=== PATIENT | male | born 1980 | race Caucasian/White ===

== ENCOUNTER 2017-02-21 19:04 | Emergency (ER) | payer BC ==
[2017-02-21 19:15] VITALS: BP 120/65
[2017-02-21] MEDS ORDERED: predniSONE 20 MG Tab PO ONE (19:47)
--- NOTE | 2017-02-21 19:51 | EDM.PDOC ---
ED HPI GENERAL MEDICAL PROBLEM - General Chief Complaint: General Stated Complaint: L elbow pain Time Seen by Provider: 02/21/17 19:30 Source of Information: Reports: Patient History Limitations: Reports: No Limitations - History of Present Illness INITIAL COMMENTS - FREE TEXT/NARRATIVE: Patient came in for evaluation of left elbow pain. Pain has been present for several months. Today it became worse. He was carrying a 2x4 when he felt a 'pop ' in lateral left elbow (site of the pain) and the pain appeared to worsen. Hurts more when he makes fist. Pain sometimes radiates down left forearm muscles. He thinks that his finger may feel a bit numb at times but otherwise does not complain of numbness. No weakness. Able to flex/extend wrist but this causes discomfort in elbow. No initial trauma noted several months ago when pain started. Job involves lifting/manual labor. History of back pain/disc issues as well as degenerative knee problems. Left Elbow Pain Score (Numeric/FACES): 6 - Related Data Allergies Allergy/AdvReac Type Severity Reaction Status Date / Time penicillin Allergy Hives Verified 10/31/16 18:24 venom-honey bee Allergy Anaphylactic Verified 10/31/16 18:24 [bee venom (honey bee)] Shock Home Meds: Home Meds Ibuprofen [Motrin] 400 mg PO BID 02/21/17 [History] Prednisone [IJD: predniSONE] 20 mg PO WITHBREAKFAST #3 tab 02/21/17 [Rx] Past Medical History HEENT History: Reports: Sinusitis Cardiovascular History: Reports: None Respiratory History: Reports: Asthma Genitourinary History: Reports: None Musculoskeletal History: Reports: Arthritis, Back Pain, Chronic, Fracture Neurological History: Reports: Concussion, Migraines Psychiatric History: Reports: ADD, Anxiety Endocrine/Metabolic History: Reports: None Dermatologic History: Reports: Eczema - Infectious Disease History Infectious Disease History: Reports: Chicken Pox, Measles, Mumps - Past Surgical History HEENT Surgical History: Reports: None Cardiovascular Surgical History: Reports: None Respiratory Surgical History: Reports: None GI Surgical History: Reports: Hernia, Inguinal Male Surgical History: Reports: Cystectomy Endocrine Surgical History: Reports: None Neurological Surgical History: Reports: None Musculoskeletal Surgical History: Reports: None Dermatological Surgical History: Reports: None Social & Family History - Tobacco Use Smoking Status *Q: Current Every Day Smoker Years of Tobacco use: 16 Packs/Tins Daily: 0.8 Used Tobacco, but Quit: Yes Month Tobacco Last Used: 08 Second Hand Smoke Exposure: Yes - Caffeine Use Caffeine Use: Reports: Coffee, Energy Drinks, Soda - Recreational Drug Use Recreational Drug Use: No ED ROS GENERAL - Review of Systems Review Of Systems: ROS reveals no pertinent complaints other than HPI. ED EXAM, GENERAL - Physical Exam Exam: See Below Exam Limited By: No Limitations General Appearance: Alert, WD/WN, No Apparent Distress Eye Exam: Bilateral Eye: EOMI, PERRL Nose: No: Nasal Swelling, Nasal Drainage Throat/Mouth: Normal Voice, No Airway Compromise Head: Atraumatic, Normocephalic Neck: Supple Respiratory/Chest: No Respiratory Distress Extremities: Other (Tender over lateral epicondyle, very mild edema noted over this area. Able to flex and extend elbow/wrist/fingers. No erythema. No increased warmth. Skin intact. No other swelling noted. Arm non-tender otherwise. Good clerical aide strength bilaterally. ) Neurological: Alert, Oriented, Normal Cognition, Normal Gait Psychiatric: Normal Affect, Normal Mood Skin Exam: Warm, Dry, Intact, Normal Color Course - Vital Signs Last Recorded V/S: Last Vital Signs Temp 36.7 C 02/21/17 19:10 Pulse 91 02/21/17 19:10 Resp 14 02/21/17 19:10 BP 120/65 02/21/17 19:10 Pulse Ox 99 02/21/17 19:10 - Orders/Labs/Meds Orders: Active Orders 24 hr Category Date Time Status Elbow Min 3V Lt [CR] Stat Exams 02/21/17 19:11 Taken Meds: Medications Discontinued Medications Generic Name Dose Route Start Last Admin Trade Name Elijah PRN Reason Stop Dose Admin Prednisone 40 mg 02/21/17 19:47 02/21/17 19:50 Prednisone PO 02/21/17 19:48 40 mg NOW ONE Administration - Re-Assessments/Exams Free Text/Narrative Re-Assessment/Exam: Suspect lateral epicondylitis with acute exacerbation. Discussed with patient usual history and treatment of patients with this diagnosis. Recommend rest over weekend. Short course prednisone given to see if this helps with acute inflammation. He is to follow up with his primary provider Friday or Friday for recheck. He may benefit from referral to PT. May need referral to Ortho. Patient is in agreement with plan. Departure - Departure Time of Disposition: 19:45 Disposition: Home, Self-Care 01 Condition: Good Clinical Impression: Epicondylitis, lateral (tennis elbow) Qualifiers: Laterality: left Qualified Code(s): M77.12 - Lateral epicondylitis, left elbow - Discharge Information Prescriptions: Prednisone [IJD: predniSONE] 20 mg PO WITHBREAKFAST #3 tab Instructions: Prednisone tablets, Tennis Elbow, [id number] Referrals: Edgard Cooper PA-C [Primary Care Provider] - Forms: ED Department Discharge Additional Instructions: Follow up with your primary provider next Friday or Friday. Work restrictions can be discussed if needed, referral to Ortho can also be discussed if indicated. Tylenol and/or Ice may be helpful. Avoid Motrin/Aleve while taking the Prednisone. Rest the left arm and avoid lifting/carrying with it. - My Orders Last 24 Hours: My Active Orders 02/21/17 19:11 Elbow Min 3V Lt [CR] Stat - Assessment/Plan Last 24 Hours: My Active Orders 02/21/17 19:11 Elbow Min 3V Lt [CR] Stat
== END 2017-02-21 20:00 | disposition home or self-care (01) ==
LOC: LL.ED 19:04
DX: M77.12 Lateral epicondylitis, left elbow (principal); F17.210 Nicotine dependence, cigarettes, uncomplicated; M19.90 Unspecified osteoarthritis, unspecified site; J45.909 Unspecified asthma, uncomplicated; F98.8 Other specified behavioral and emotional disorders with onset usually occurring in childhood and adolescence; Z88.0 Allergy status to penicillin; Z91.030 Bee allergy status; Z79.891 Long term (current) use of opiate analgesic; Z79.899 Other long term (current) drug therapy
CPT/HCPCS: 73080; 99283; A9270

== ENCOUNTER 2019-04-24 21:58 | Emergency (ER) | payer BC ==
[2019-04-24 22:02] VITALS: BP 115/71; PULSE 89
[2019-04-24] MEDS ORDERED: Tetracaine HCl/PF 0.5% 4 ML Bottle EYERT ONE (22:23)
[2019-04-24] MEDS ORDERED: Balanced Salt Solution Ophth Irrig 30 ML Bottle EYERT ONE (22:30)
--- NOTE | 2019-04-24 22:43 | EDM.PDOC ---
ED HPI GENERAL MEDICAL PROBLEM - General Chief Complaint: Eye Problems Stated Complaint: Right Eye burning Time Seen by Provider: 04/24/19 22:00 Source of Information: Reports: Patient, Family History Limitations: Reports: No Limitations - History of Present Illness INITIAL COMMENTS - FREE TEXT/NARRATIVE: Patient is a 38-year-old who states that he was working on a car when something fell in his eyes at that time he washed it but is still irritating him at this time I examined the eye saw no foreign body we irrigated the eye and apply Neosporin and a Nitropatch he is to return if not better Friday Onset: Gradual Duration: Day(s):, Constant Location: Reports: Face Quality: Reports: Ache, Throbbing Severity: Moderate Improves with: Reports: None Worsens with: Reports: None Associated Symptoms: Reports: No Other Symptoms Treatments [employer]: Reports: Acetaminophen Right Eye Pain Score (Numeric/FACES): 7 - Related Data Allergies Allergy/AdvReac Type Severity Reaction Status Date / Time penicillin Allergy Hives Verified 04/24/19 22:03 venom-honey bee Allergy Anaphylactic Verified 04/24/19 22:03 [bee venom (honey bee)] Shock Home Meds: Home Meds Ibuprofen [Motrin] 400 mg PO BID 02/21/17 [History] Past Medical History HEENT History: Reports: Sinusitis Cardiovascular History: Reports: None Respiratory History: Reports: Asthma Genitourinary History: Reports: None Musculoskeletal History: Reports: Arthritis, Back Pain, Chronic, Fracture Neurological History: Reports: Concussion, Migraines Psychiatric History: Reports: ADD, Anxiety Endocrine/Metabolic History: Reports: None Dermatologic History: Reports: Eczema - Infectious Disease History Infectious Disease History: Reports: Chicken Pox, Measles, Mumps - Past Surgical History HEENT Surgical History: Reports: None Cardiovascular Surgical History: Reports: None Respiratory Surgical History: Reports: None GI Surgical History: Reports: Hernia, Inguinal Male Surgical History: Reports: Cystectomy Endocrine Surgical History: Reports: None Neurological Surgical History: Reports: None Musculoskeletal Surgical History: Reports: None Dermatological Surgical History: Reports: None Social & Family History - Tobacco Use Smoking Status *Q: Current Every Day Smoker Years of Tobacco use: 25 Packs/Tins Daily: 0.5 Used Tobacco, but Quit: No - Caffeine Use Caffeine Use: Reports: Energy Drinks, Soda Other Caffeine Use: energy drinks- 4 per day. soda-1-2 per day - Recreational Drug Use Recreational Drug Use: No ED ROS GENERAL - Review of Systems Review Of Systems: See Below Constitutional: Reports: No Symptoms HEENT: Reports: Eye Pain Respiratory: Reports: No Symptoms Cardiovascular: Reports: No Symptoms Endocrine: Reports: No Symptoms GI/Abdominal: Reports: No Symptoms : Reports: No Symptoms Musculoskeletal: Reports: No Symptoms Skin: Reports: No Symptoms Neurological: Reports: No Symptoms Psychiatric: Reports: No Symptoms Hematologic/Lymphatic: Reports: No Symptoms Immunologic: Reports: No Symptoms ED EXAM GENERAL W FULL EYE - Physical Exam Exam: See Below Exam Limited By: No Limitations General Appearance: Alert, WD/WN, No Apparent Distress Eye Exam: Bilateral Eye: EOMI, Normal Inspection, PERRL Ears: Normal External Exam, Normal Canal, Hearing Grossly Normal, Normal TMs Nose: Normal Inspection, Normal Mucosa, No Blood Throat/Mouth: Normal Inspection, Normal Lips, Normal Teeth, Normal Gums, Normal Oropharynx, Normal Voice, No Airway Compromise Head: Atraumatic, Normocephalic Neck: Normal Inspection, Supple, Non-Tender, Full Range of Motion Respiratory/Chest: No Respiratory Distress Cardiovascular: Normal Peripheral Pulses, Regular Rate, Rhythm, No Edema, No Gallop, No JVD, No Murmur, No Rub GI/Abdominal: Normal Bowel Sounds, Soft, Non-Tender, No Organomegaly, No Distention, No Abnormal Bruit, No Mass (Male) Exam: Deferred (Female) Exam: Normal External Exam, Normal Speculum Exam, Normal Bimanual Exam Rectal (Males) Exam: Deferred Back Exam: Normal Inspection, Full Range of Motion, NT Extremities: Normal Inspection, Normal Range of Motion, Non-Tender, Normal Capillary Refill, No Pedal Edema Neurological: Alert, Oriented, CN II-XII Intact, Normal Cognition, Normal Gait, Normal Reflexes, No Motor/Sensory Deficits Psychiatric: Normal Affect, Normal Mood Skin Exam: Warm, Dry, Intact, Normal Color, No Rash Lymphatic: No Adenopathy Course - Vital Signs Last Recorded V/S: Last Vital Signs Temp 98.4 F 04/24/19 22:00 Pulse 89 04/24/19 22:00 Resp 16 04/24/19 22:00 BP 115/71 04/24/19 22:00 Pulse Ox 99 04/24/19 22:00 - Orders/Labs/Meds Orders: Active Orders 24 hr Category Date Time Status Bacitracin/Neomycin/Polymyxin [Neosporin Ophth Oint] Med 04/24/19 22:45 Ordered 1 gm EYERT DAILY Medication Orders Neomycin/Polymyxin/Bacitracin (Neosporin Ophth Oint) 1 gm EYERT DAILY MELANI Meds: Medications Generic Name Dose Route Start Last Admin Trade Name Freq PRN Reason Stop Dose Admin Neomycin/Polymyxin/Bacitracin 1 gm 04/24/19 22:45 Neosporin Ophth Oint EYERT DAILY MELANI Discontinued Medications Generic Name Dose Route Start Last Admin Trade Name Freq PRN Reason Stop Dose Admin Balanced Salt Solution 10 ml 04/24/19 22:30 04/24/19 22:36 Eye Stream Eye Rinse EYERT 04/24/19 22:31 10 ml ONETIME ONE Administration Tetracaine HCl 1 ml 04/24/19 22:23 04/24/19 22:26 Tetracaine 0.5% Steri-Unit Rhonda EYERT 04/24/19 22:24 1 ml ASDIRECTED ONE Administration Departure - Departure Time of Disposition: 22:48 Disposition: Home, Self-Care 01 Clinical Impression: Conjunctivitis Qualifiers: Conjunctivitis type: acute Acute conjunctivitis type: toxic Laterality: right Qualified Code(s): H10.211 - Acute toxic conjunctivitis, right eye - Discharge Information *PRESCRIPTION DRUG MONITORING PROGRAM REVIEWED*: No *COPY OF PRESCRIPTION DRUG MONITORING REPORT IN PATIENT LUIS: No Forms: ED Department Discharge Care Plan Goals: Patient was examined reveal no foreign object no lacerations I will apply ointment and patched the eye patient is to return if worsen or not improving - My Orders Last 24 Hours: My Active Orders 04/24/19 22:45 Bacitracin/Neomycin/Polymyxin [Neosporin Ophth Oint] 1 gm EYERT DAILY - Assessment/Plan Last 24 Hours: My Active Orders 04/24/19 22:45 Bacitracin/Neomycin/Polymyxin [Neosporin Ophth Oint] 1 gm EYERT DAILY
[2019-04-24] MEDS ORDERED: Bacitracin/Neomycin/Polymyxin B Ophth Oint 3.5 GM Tube EYERT SCH (22:45)
[2019-04-24] MEDS ORDERED: Bacitracin Oint 1 GM U/D Packet TOP STA (22:51)
== END 2019-04-24 23:05 | disposition home or self-care (01) ==
LOC: LL.ED 21:58
DX: H10.211 Acute toxic conjunctivitis, right eye (principal); F17.200 Nicotine dependence, unspecified, uncomplicated; Z88.0 Allergy status to penicillin; Z91.030 Bee allergy status
CPT/HCPCS: 99282